=== PATIENT | male | born 1930 | race Caucasian/White ===

== ENCOUNTER → 2017-01-14 | Outpatient (CLI) | payer OTHER | END | disposition home or self-care (01) | LOC: GMAH 15:03 | PROVIDERS: ATTEND Family Medicine | DX: E03.9 Hypothyroidism, unspecified (principal) | CPT/HCPCS: 84443; 84550; G0103 ==

== ENCOUNTER → 2018-01-21 | Outpatient (CLI) | payer OTHER | LOC: GMAH 14:26 | PROVIDERS: ATTEND Family Medicine | DX: E03.9 Hypothyroidism, unspecified (principal); E78.2 Mixed hyperlipidemia; Z12.5 Encounter for screening for malignant neoplasm of prostate | CPT/HCPCS: 84443; 84550; G0103 ==

== ENCOUNTER 2018-09-15 17:14 | Inpatient (IN) | payer OTHER ==
--- NOTE | 2018-09-15 17:16 | HP ---
SUPERVISING PHYSICIAN: Adryan Tolbert MD CHIEF COMPLAINT: Dehydration. HISTORY OF PRESENT ILLNESS: This is an 88-year-old male patient who was seen in Dr. Teague's office today. His last clinic appointment was in the fall sometime. He has diabetes, type 2, that he has in the past kept under fairly decent control. According to Dr. Teague, one of his out of town children was trying to reach him in the last day or two and they were unable to reach him. The termite inspector was called to go check on him. The patient was okay, but he had not eaten in several days, he was very dehydrated and his son came from [place] to see him and brought him to Dr. Teague's office. Today, Dr. Teague did some routine lab work and found that he had a BUN of 81 with creatinine 3.3. His baseline creatinine is about 1.3. He has lost over 20 pounds since his last clinic visit. He also had a 16,000 white count, but no obvious sign of infectious process. He also had a chest x-ray done at the clinic and Dr. Teague said he did not see any pneumonia or infiltrate. He asked that the patient be directly admitted to the hospital for acute on chronic renal failure. PAST MEDICAL HISTORY: 1. Type 2 diabetes mellitus. 2. Hyperlipidemia. 3. Hypertension. 4. Hypothyroidism. PAST SURGICAL HISTORY: None. OUTPATIENT MEDICATIONS: Per the EMR and awaiting verification. ALLERGIES: PENICILLIN. SOCIAL HISTORY: He is retired. He has been twice and twice. He has four children. He quit smoking over 40 years ago. He denies any ETOH or illicit drug use. REVIEW OF SYSTEMS: Somewhat difficult to obtain due to the patient's mild confusion and questionable dementia. He did say that he had lost over 100 pounds in the last year and that he had not eaten much over the last two to three days, but other than that, it was very difficult to get a review of systems. PHYSICAL EXAMINATION: VITAL SIGNS: Pulse 61. O2 saturation 99% on room air. GENERAL: This is an 88-year-old male patient who is lying in his hospital bed. He is very thin and cachectic looking. He is in no acute distress. HEENT: Normocephalic, atraumatic. Pupils are equal and reactive. Oropharynx is clear. Oral mucous membranes are very dry. NECK: Supple without mass. RESPIRATORY: Essentially clear to auscultation bilaterally, somewhat diminished at the bases. CHEST: There is equal rise and fall of the chest with inspiration and expiration. CARDIOVASCULAR: Regular rate and rhythm. GASTROINTESTINAL: Abdomen is soft, nondistended, nontender. Bowel sounds are positive. EXTREMITIES: No cyanosis, clubbing or edema. NEUROLOGIC: Awake, alert and oriented to person and place. Again, he has a very difficult time answering questions appropriately, although according to Dr. Teague he is at his baseline. LABORATORY: Labs done at the hospital show WBCs 12.3, hemoglobin 11.7, hematocrit 35.9. He has a left shift on his differential. PT 19, INR 1.91, PTT 47.4. Sodium 134, potassium 5.6, chloride 102, carbon dioxide 19, BUN 80, creatinine 3.11, glucose 98. Calcium 9.1, magnesium 1.8. Liver function tests within normal limits. All other labs and films have been reviewed via the EMR. IMPRESSION: 1. Acute on chronic renal failure. His baseline creatinine is 1.3. Today, it was 3.11. 2. Dehydration. 3. Hyperkalemia, most likely secondary to #1. His potassium is 5.6. 4. Diabetes mellitus, type 2. 5. Leukocytosis with no fever or obvious infectious process, may be an inflammatory response to #1 and #2. 6. Hyperlipidemia. 7. Hypertension. 8. Hypothyroidism on supplementation. PLAN: We will admit the patient to the hospital. I will give him fluids overnight. We will recheck his lab in the morning. I will also consult Computer Repair Technician for discharge planning as I do not believe the patient will be safe at home as he lives by himself and there is an obvious self-care deficit and he has no family support as all of his children live out of town. He will be on a proton pump inhibitor for ulcer prophylaxis and Lovenox for DVT prophylaxis. We will continue to monitor the patient closely and follow as needed. #[id number] [facility]
[2018-09-15] MEDS ORDERED: ONDANSETRON INJ 4 MG/2 ML VIAL IV PRN (19:03)
[2018-09-15] MEDS ORDERED: SODIUM CHLORIDE 0.9% (FLUSH) 10 ML SYG IV PRN (19:03)
[2018-09-15] MEDS ORDERED: GLUCAGON INJ 1 MG VIAL SUBCU PRN (19:15)
[2018-09-15] MEDS ORDERED: SODIUM CHLORIDE 0.9% 1000ML 1,000 ML IVS ONE (19:26)
[2018-09-15] MEDS: SODIUM CHLORIDE 0.9% (FLUSH) 10 ML SYG IV SCH (20:55)
[2018-09-15] MEDS: INSULIN LISPRO 100 UNITS/ML PEN SUBCU SCH (20:56)
[2018-09-15] MEDS: IV SET AND CAP CHANGE INJ INJ SCH (20:56)
[2018-09-16] MEDS: INSULIN LISPRO 100 UNITS/ML PEN SUBCU SCH ×4 (07:11→21:17)
--- NOTE | 2018-09-16 07:50 | RAD ---
EXAM DESCRIPTION: Chest,2 Views CLINICAL HISTORY: routine COMPARISON: Previous chest x-ray February 19, [address] chest September 27, 2015 TECHNIQUE: PA/lateral FINDINGS: Linear density over the right lower lung zone could be discoid atelectasis, linear scar or something overlying the patient. The latter is thought most likely. Ill-defined infiltrate in the peripheral right lower lobe with slight blunting of the right costophrenic angle suggests pneumonia with small pleural effusion. Vague nodular densities in the right upper lobe are seen projecting between the posterior aspects of the right fifth and sixth ribs, sixth and seventh and seventh and eighth ribs. Correlate with chest CT findings. Heart size is normal with large central pulmonary arteries suggesting pulmonary hypertension. Calcified aortic arch. No left pleural effusion or pneumothorax. Left lung is clear with no left-sided consolidating infiltrate. Lateral view shows intact sternum and T-spine. Compared to the previous chest x-ray, extensive consolidation of the right lung now appears markedly improved. Previous chest CT from September 27, 2015 showed reticulonodular infiltrate throughout the right lung but the left lung appeared spared. IMPRESSION: Right lower lobe infiltrate with small right pleural effusion. Nodular densities in the right upper lobe. Correlate with chest CT findings. Electronically signed by: Bobby Joy MD 09/16/2018 7:48 AM CLIENT SUCCESS DIRECTOR
[2018-09-16] MEDS ORDERED: METFORMIN HCL 1000 MG PO SCH (09:00)
[2018-09-16] MEDS: SODIUM CHLORIDE 0.9% (FLUSH) 10 ML SYG IV SCH ×2 (09:03→20:39)
[2018-09-16] MEDS: LEVOTHYROXINE SODIUM 0.088 MG TAB PO SCH (09:03)
[2018-09-16] MEDS: LISINOPRIL 10 MG TAB PO SCH (09:03)
[2018-09-16] MEDS: SODIUM CHLORIDE 0.45% 1000ML 1,000 ML IVS PRN ×2 (13:09→21:17)
[2018-09-16] MEDS: metFORMIN HCL 500 MG TAB PO SCH (16:56)
[2018-09-16] MEDS: SIMVASTATIN 20 MG TAB PO SCH (20:39)
[2018-09-16] MEDS: VERAPAMIL HCL 200 MG PO SCH (20:39)
[2018-09-16] MEDS ORDERED: LEVALBUTEROL NEBS 1.25 MG/3 ML VIAL INH PRN (22:06)
[2018-09-16] MEDS ORDERED: SODIUM CHL 0.9% 50ML MIN-BAG+ 50 ML IVPB ONE (22:18)
[2018-09-16] MEDS ORDERED: cefTRIAXone SODIUM 1 GM VIAL ONE (22:18)
[2018-09-16] MEDS: cefTRIAXone SODIUM 1 GM in SODIUM CHL 0.9% 50ML MIN-BAG+ 50 ML IVPB SCH (22:21)
[2018-09-16] MEDS ORDERED: SODIUM CHLORIDE 0.9% 250ML 250 ML ONE (23:47)
[2018-09-16] MEDS ORDERED: AZITHROMYCIN IV 500 MG VIAL IVPB ONE (23:48)
[2018-09-16] MEDS: AZITHROMYCIN IV 500 MG in SODIUM CHLORIDE 0.9% 250ML 250 ML IVPB SCH (23:51)
[2018-09-17] MEDS: LEVOTHYROXINE SODIUM 0.088 MG TAB PO SCH (06:09)
[2018-09-17] MEDS: DEXTROSE 50% 25 GM/50 ML SYG IV PRN ×2 (07:05→07:27)
--- NOTE | 2018-09-17 08:04 | CT ---
EXAM: CT chest without contrast. CT abdomen and pelvis without contrast. INDICATION: Pneumonia. Acute on chronic renal failure. TECHNIQUE: Contiguous axial CT images of the chest. Contiguous axial CT images of the abdomen and pelvis. Intravenous contrast: Absent. Oral contrast: Absent. DLP 1036 mGy-cm. This exam was performed according to our departmental dose-optimization program, which includes automated exposure control, adjustment of the mA and/or kV according to patient size and/or use of iterative reconstruction technique. COMPARISON: 09/27/2015. FINDINGS: --Chest-- Thoracic aorta: Atherosclerotic calcifications Heart: There are atherosclerotic calcifications of the coronary arteries. There is a trace pericardial effusion. Mediastinum: No pathologic sized middle mediastinal lymphadenopathy. Tracheobronchial tree: Unremarkable. Lungs: Lobar consolidation: There has been development of nodular opacities within the right lower lobe. There are prominent interstitial opacities with tree-in-bud opacities within the right lung, similar to the prior. Pleural effusion: Negative. Pneumothorax: Negative. Other: Negative. Bones: Unremarkable. --Abdomen-- Solid abdominal viscera: Liver: Unremarkable. Gallbladder: Unremarkable. Pancreas: Unremarkable. Spleen: Unremarkable. Adrenal glands: Unremarkable. Right kidney: No hydronephrosis. Left kidney: There is moderate hydronephrosis and hydroureter. Urinary bladder: There is a 2.8 x 1.4 cm soft tissue density adjacent to the left UVJ (axial image 76). Abdominal aorta: Atherosclerotic calcifications without evidence of aneurysm Peritoneal: Free fluid: None. Free air: None. Other: No pathologic sized lymph nodes in the upper abdomen. There is a 4.3 x 6.3 cm lipoma along the left lower quadrant Bowel: Stomach: Unremarkable. Small bowel: Unremarkable. Appendix: No evidence of appendicitis. Colon: Diverticulosis without evidence of diverticulitis Rectum: Unremarkable. Prostate: Unremarkable. Bones: There is multilevel spondylosis IMPRESSION: 1. Right-sided pneumonia 2. Mass near the left UVJ causing moderate left-sided hydroureter and hydronephrosis. Further evaluation with cystoscopy is recommended. Electronically signed by: Federico Tinoco MD 09/17/2018 8:02 AM TELECOMMUNICATIONS EQUIPMENT INSTALLER Workstation: [id number]
[2018-09-17] MEDS: metFORMIN HCL 500 MG TAB PO SCH ×2 (08:06→17:50)
[2018-09-17] MEDS: INSULIN LISPRO 100 UNITS/ML PEN SUBCU SCH ×4 (08:06→20:54)
--- NOTE | 2018-09-17 08:34 | PN ---
SUPERVISING PHYSICIAN: Adryan Tolbert MD DATE: 09/16/2018 SUBJECTIVE: The patient is lying in bed. She is still quite confused. Earlier today he had taken his medication, even though he was told not to take his medications and that the nurses would give it to him. We discussed that he may have to have some physical therapy after discharge. It was difficult for him to understand the concept but he did deny that he had no chest pain, nausea or vomiting, he did not have any shortness of breath. OBJECTIVE: VITAL SIGNS: Temperature 97.9, heart rate 67, blood pressure 146/65, respiratory rate 20, 02 saturation 93% on room air. CHEST: Essentially clear to auscultation bilaterally. CARDIAC: Regular rate and rhythm. At times he is slightly bradycardic. ABDOMEN: Soft, nondistended, non-tender. Bowel sounds are positive. EXTREMITIES: No cyanosis, clubbing, or edema. NEURO: He is awake and alert. He is oriented to person only. He gets quite confused most of the time. LABORATORY: WBCs have improved to 10,500 with a hemoglobin of 11.4 and hematocrit of 34.9. He does have a left shift on differential. His chemistries are basically within normal limits with the exception f potassium of 5.3. His glucose was 39 early this morning but there were no signs and symptoms of hypoglycemia and he ate a good breakfast. His creatinine has improved to 2.8, BUN 79. Chest x-ray shows right lower lobe infiltrate with a small right pleural effusion. Nodular densities in the upper lobe, correlate with chest CT findings. All other labs and films have been reviewed via the EMR. . ASSESSMENT: 1. Acute on chronic renal failure. His baseline creatinine is 1.3. On admission, it was 3.11. 2. Dehydration. 3. Concerns for right lower lobe pneumonia, although patient has no reported symptoms of upper respiratory distress. He is a poor historian. 4. Hyperkalemia, most likely secondary to #1. 5. Diabetes mellitus, type 2. 6. Leukocytosis that has slightly improved. . 7. Hyperlipidemia. 8. Hypertension. 9. Hypothyroidism on supplementation. PLAN: We will continue present supportive care. He will continue on primary IV fluids until his kidney function improves. I have ordered routine in the morning. Brake Press Operator was consulted and will need to explore discharge planning, possibly prison placement with physical therapy. I will consult physical therapy for tomorrow as well as to do a CT scan as recommended on his x-ray. He will be n.p.o. at midnight as I will go ahead and do an abdominal CT to check to see if there are any kidney issues going on to have caused his renal issues. We will continue to monitor the patient closely and follow as needed. #[id number] [facility]
[2018-09-17] MEDS: LEVALBUTEROL NEBS 1.25 MG/3 ML VIAL INH SCH ×4 (08:35→19:28)
[2018-09-17] MEDS: SODIUM CHLORIDE 0.9% (FLUSH) 10 ML SYG IV SCH ×2 (08:59→20:50)
[2018-09-17] MEDS: SODIUM CHLORIDE 0.45% 1000ML 1,000 ML IVS PRN ×2 (09:00→20:45)
[2018-09-17] MEDS: LISINOPRIL 10 MG TAB PO SCH (10:17)
[2018-09-17] MEDS ORDERED: WARFARIN SODIUM 3 MG TAB PO ONE (12:26)
[2018-09-17] MEDS ORDERED: SODIUM CHLORIDE 0.9% 250ML 250 ML ONE (20:18)
[2018-09-17] MEDS ORDERED: SODIUM CHL 0.9% 50ML MIN-BAG+ 50 ML IVPB ONE (20:18)
[2018-09-17] MEDS ORDERED: AZITHROMYCIN IV 500 MG VIAL IVPB ONE (20:19)
[2018-09-17] MEDS ORDERED: cefTRIAXone SODIUM 1 GM VIAL ONE (20:19)
[2018-09-17] MEDS: VERAPAMIL HCL 200 MG PO SCH (20:47)
[2018-09-17] MEDS: SIMVASTATIN 20 MG TAB PO SCH (20:49)
[2018-09-17] MEDS: cefTRIAXone SODIUM 1 GM in SODIUM CHL 0.9% 50ML MIN-BAG+ 50 ML IVPB SCH (22:10)
[2018-09-17] MEDS: AZITHROMYCIN IV 500 MG in SODIUM CHLORIDE 0.9% 250ML 250 ML IVPB SCH (23:35)
[2018-09-18] MEDS ORDERED: MAGNESIUM SULFATE PREMIX 2GM 2 GM in PREMIX BAG 1 BAG IVPB ONE ×2 (04:07→09:38)
[2018-09-18] MEDS ORDERED: MAGNESIUM SULFATE PREMIX 2GM 50 ML IVPB ONE ×2 (04:41→10:34)
[2018-09-18] MEDS: LEVOTHYROXINE SODIUM 0.088 MG TAB PO SCH (06:03)
[2018-09-18] MEDS: LEVALBUTEROL NEBS 1.25 MG/3 ML VIAL INH SCH ×4 (07:56→20:40)
[2018-09-18] MEDS: metFORMIN HCL 500 MG TAB PO SCH (08:14)
[2018-09-18] MEDS: INSULIN LISPRO 100 UNITS/ML PEN SUBCU SCH ×4 (08:19→21:08)
[2018-09-18] MEDS: LISINOPRIL 10 MG TAB PO SCH (09:21)
[2018-09-18] MEDS: SODIUM CHLORIDE 0.9% (FLUSH) 10 ML SYG IV SCH ×2 (09:23→20:58)
--- NOTE | 2018-09-18 09:46 | PN ---
SUPERVISING PHYSICIAN: Adryan Tolbert MD DATE: 09/17/2018 SUBJECTIVE: The patient is lying in bed. He continues to be confused at times. He answers most questions. I explained that he had some irregularities on his CT scan and he would need to see Dr. Nunn, the urologist, and he was agreeable to that. I also discussed that he needed some rehabilitation at one of the local nursing homes. He was not quite as agreeable to that. I did discuss with his son at length about his discharge planning and he agreed that he was not safe to go home. Otherwise, the patient has no complaints of chest pain, nausea or vomiting, diarrhea or shortness of breath. OBJECTIVE: VITAL SIGNS: Temperature 98 , heart rate 60, blood pressure 118/62, respiratory rate 19, 02 saturation 94% on 2 liters nasal cannula. . CHEST: Diminished at the bases, otherwise a few scattered rhonchi throughout, somewhat more diminished on the right side. . CARDIAC: Regular rate and rhythm. ABDOMEN: Soft, nondistended, non-tender. Bowel sounds are positive. NEURO: He is awake and alert. He is oriented x3 but he does get somewhat confused but is easy to reorient. LABORATORY: WBCs 8.2, hemoglobin of 10.2 and hematocrit of 30.9. His INR is 1.78. Sodium 133, potassium 4.7, chloride 106, carbon dioxide 22, magnesium 1.5. Chest, abdominal/pelvic CT shows: 1. Right-sided pneumonia. 2. Mass near the left UVJ causing moderate left-sided hydroureter and hydronephrosis. Further evaluation with cystoscopy is recommended. All other labs and films have been reviewed via the EMR. . ASSESSMENT: 1. Acute on chronic renal failure. His baseline creatinine is 1.3. On admission, it was 3.11. Today it is 2.14. 2. Mass on his left ureter per CT scan. 3. Right lower lobe pneumonia. 4. Hyperkalemia, most likely secondary to #1. 5. Hypomagnesemia most likely secondary to #1. 6. Diabetes mellitus, type 2. 7. Leukocytosis that has normalized. . 8. Hyperlipidemia. 9. Hypertension. 10. Hypothyroidism on supplementation. PLAN: We will continue present supportive care. We are giving him magnesium supplementation, I have also asked for consultation by Dr. Nunn, urologist, on Thursday. I discussed his discharge plan at length with his son. His son's name is Arjun Salazar and he would like to be informed of anything that goes on. He lives in [place]. His telephone number is [phone]. He is to be back on Thursday or Thursday. He agreed that the patient should get some sort of rehabilitation since they offer it at one of the nursing homes, he was going to go by [facility] and discuss arrangements with them. I have ordered repeat labs in the morning. Will hold off on a chest x-ray at this time and will continue to monitor the patient closely and follow as needed. Dr. Tolbert is the collaborating physician available for consultation. #[id number] [facility]
[2018-09-18] MEDS: SODIUM CHLORIDE 0.45% 1000ML 1,000 ML IVS PRN (15:27)
[2018-09-18] MEDS ORDERED: SODIUM CHLORIDE 0.9% 250ML 250 ML ONE (20:32)
[2018-09-18] MEDS ORDERED: cefTRIAXone SODIUM 1 GM VIAL ONE ×2 (20:33→20:34)
[2018-09-18] MEDS ORDERED: AZITHROMYCIN IV 500 MG VIAL IVPB ONE (20:33)
[2018-09-18] MEDS ORDERED: SODIUM CHL 0.9% 50ML MIN-BAG+ 50 ML IVPB ONE (20:34)
[2018-09-18] MEDS: VERAPAMIL HCL 200 MG PO SCH (20:56)
[2018-09-18] MEDS: SIMVASTATIN 20 MG TAB PO SCH (20:57)
[2018-09-18] MEDS: IV SET AND CAP CHANGE INJ INJ SCH (20:58)
--- NOTE | 2018-09-18 21:19 | PN ---
DATE: 09/18/18 SUPERVISING PHYSICIAN: Manuelito Allred M.D. SUBJECTIVE: The patient is resting in bed. He is very talkative today, explaining his entire admission history and events prior to current hospitalization. I again discussed with him the findings on the CT and that he needs to be seen by urology and again the need for rehabilitation, however he is not in complete agreement at this point. He has had no other complaints, including chest pains, nausea, vomiting or diarrhea or shortness of breath. OBJECTIVE: VITAL SIGNS: Temperature 97.6, pulse 63, blood pressure 108/61, respirations 16, satting 97% on room air. I's and O's show a positive balance of 670 with 2170 in, 1500 out. Weight is 66.7 kg. GENERAL: The patient is alert. Appears to be in no distress. He is obviously cathartic and weak. CHEST: Lung sounds today are fairly clear, just diminished towards the bases with very faint rhonchi heard on the right side compared to the left. HEART: Regular rate and rhythm. ABDOMEN: Flat, soft with positive bowel sounds. NEUROLOGIC: He is alert and oriented times three. EXTREMITIES: Without any clubbing, cyanosis or edema. LABORATORY: White count 7,300, hemoglobin 10, hematocrit 30.0, platelet count 138,000. Differential does show a resolving left shift. RBC indices indicate a macrocytic hyperchromic presentation. Chemistry shows a mild hyponatremia with sodium 134, potassium is normal at 4.5, BUN is down to 49, creatinine is down to 1.91. Blood sugars have been between 101 and 148. Liver function shows to be within normal limits. Magnesium 1.3. Albumin 2.8. MICROBIOLOGY: No specimens pending. RADIOLOGY: No additional radiographic studies today. ASSESSMENT: 1. Acute on chronic renal failure with a known baseline of 1.3 with initial admission creatinine at 3.1 showing some improvement down to 1.9 likely due to both prerenal and postrenal azotemia contributed from dehydration and left sided pelvic mass causing hydronephrosis with urology consultation pending and some exacerbation probably from Metformin and Lisinopril. 2. Soft tissue mass in the left ureter as noted on CT scan contributing to a postrenal azotemia with urology consultation pending with Dr. Nunn on Thursday. 3. Right lower lobe pneumonia, community acquired, improving with treatment. 4. Hyperkalemia, resolved back to baseline. 5. Hypomagnesemia, improving with replacement likely due to poor nutritional status. 6. Diabetes mellitus, type 2 showing to be controlled. 7. Hypothyroidism on supplementation. 8. Hypertension. 9. History of unexplained weight loss with concerns of cancer involving the pelvic area with CT findings for soft tissue mass pending further consultation. 10. 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 11. Extreme deconditioning due to recent weight loss and chronic illness requiring more aggressive rehabilitation in order to return the patient back to a safer baseline physical status prior to discharge. PLAN: Will continue with treatment of pneumonia with antibiotics including azithromycin and Rocephin. Will continue aggressive pulmonary hygiene. Will go ahead and resume his fluids but decrease them to 80 with half normal saline and monitor his I's and O's closely. Still awaiting consultation with Dr. Nunn on Thursday. He will need further discharge planning in regards to his ongoing weakness and history of falls, and obviously not being a safe candidate for returning home. Until he can transition to outpatient management will continue to monitor and treat as needed. [facility][id number] [facility]
[2018-09-18] MEDS: cefTRIAXone SODIUM 1 GM in SODIUM CHL 0.9% 50ML MIN-BAG+ 50 ML IVPB SCH (22:51)
[2018-09-18] MEDS: AZITHROMYCIN IV 500 MG in SODIUM CHLORIDE 0.9% 250ML 250 ML IVPB SCH (23:37)
[2018-09-19] MEDS: SODIUM CHLORIDE 0.45% 1000ML 1,000 ML IVS PRN ×2 (05:07→18:28)
[2018-09-19] MEDS: LEVOTHYROXINE SODIUM 0.088 MG TAB PO SCH (06:04)
[2018-09-19] MEDS: INSULIN LISPRO 100 UNITS/ML PEN SUBCU SCH ×4 (07:34→22:42)
--- NOTE | 2018-09-19 08:19 | RAD ---
EXAM DESCRIPTION: Chest,2 Views CLINICAL HISTORY: 88 years Male Rt sided pneumonia COMPARISON: Two-view chest 09/16/2018 TECHNIQUE: PA and lateral views of the chest are obtained. FINDINGS: Heart: The heart is normal in size and configuration. Vasculature: There is [id number] tortuosity and atherosclerosis of the aorta. The pulmonary vascularity is normal. Mediastinum: Unremarkable otherwise. No evidence of mass or adenopathy. Lungs: Hyperinflation and hyperlucency of the lungs is consistent with COPD, more specifically centrilobular emphysema or reactive airway disease. An ill-defined opacity persists in the posterior basal segment of the right lower lobe which measures 3.2 cm CC by 2.2 cm T by approximately 3.6 cm AP with previously demonstrated surrounding infiltrate improving. The remainder of the lungs are essentially clear. Pleural spaces: There is blunting of the right costophrenic angle consistent with scarring or a small pleural effusion. There is no left pleural fluid or pneumothoraces. are no pneumothoraces. Osseous structures: There is no evidence of acute fracture, osseous destruction or osteoblastic lesions. There are diffuse enthesopathic changes including a rolling pattern of ossification in the thoracic spine consistent with diffuse idiopathic skeletal hyperostosis (DISH). Tubes and catheters: None. Upper abdomen: No acute findings. IMPRESSION: Persistent ill-defined opacity in the right lower lobe with less surrounding infiltrate. Although, this appearance could indicate improving pneumonia, an underlying mass is not excludable. Short-term follow-up films to complete resolution are recommended. CT chest may be warranted if this fails to clear in a timely manner. Electronically signed by: Malena Bruno MD 09/19/2018 8:16 AM [facility]
[2018-09-19] MEDS: LEVALBUTEROL NEBS 1.25 MG/3 ML VIAL INH SCH ×4 (08:37→20:47)
[2018-09-19] MEDS: SODIUM CHLORIDE 0.9% (FLUSH) 10 ML SYG IV SCH ×2 (11:50→22:07)
[2018-09-19] MEDS ORDERED: SODIUM CHLORIDE 0.9% 250ML 250 ML ONE (19:58)
[2018-09-19] MEDS ORDERED: SODIUM CHL 0.9% 50ML MIN-BAG+ 50 ML IVPB ONE (19:58)
[2018-09-19] MEDS ORDERED: AZITHROMYCIN IV 500 MG VIAL IVPB ONE (19:59)
[2018-09-19] MEDS ORDERED: cefTRIAXone SODIUM 1 GM VIAL ONE (19:59)
--- NOTE | 2018-09-19 21:20 | PN ---
DATE: 09/19/18 SUPERVISING PHYSICIAN: Manuelito Allred M.D. SUBJECTIVE: The patient actually looks pretty good today. He was up and around in his room showing to be able to function with very little assistance from the nurses. He also notes that he is feeling much better. OBJECTIVE: VITAL SIGNS: Temperature 97.6, pulse 71, blood pressure 159/66, respiratory rate 18, satting 99% on room air at rest. I's and O's show a positive balance with a weight of 68.3. CHEST: Lung sounds are clearer today. There is no obvious rhonchi or rales. They do remain diminished towards the bases. HEART: Regular rate and rhythm. ABDOMEN: Soft, non-tender. Positive bowel sounds. NEUROLOGIC: He remains alert and oriented times three. EXTREMITIES: Without any clubbing, cyanosis or edema. LABORATORY: Chemistries show sodium 134, BUN is now 35, creatinine is down to 1.82. Blood sugar is between 99 and 131. Calcium 8.5. RADIOLOGY: Chest x-ray per radiology interpretation note of persistent ill- defined opacity in the right lower lobe with less surrounding infiltrate. Although appearance could indicate improving pneumonia, lung mass is not excludable. Short term followup is recommended as well as CT. ASSESSMENT: 1. Acute on chronic renal failure with the patient's baseline at 1.3 on creatinine with initial creatinine at 3.1,now improving down to 1.8 felt to be due to prerenal and postrenal azotemia contributed both from dehydration and left sided pelvic mass causing resulting hydronephrosis with urology consultation pending and with some exacerbation probably from Metformin and Lisinopril. 2. Soft tissue mass in the pelvic area abutting the left ureter as noted on CT probably contributing to postrenal azotemia with urology consultation pending on Thursday with Dr. Nunn. 3. Right lower lobe pneumonia, community acquired, improving with treatment. 4. Hyperkalemia, resolved, now back to baseline. 5. Hypomagnesemia, improving with replacement probably due to poor nutritional status. 6. Diabetes mellitus, type 2 showing to be controlled. 7. Hypothyroidism on supplementation. 8. Hypertension, controlled. 9. History of unexplained weight loss with concerns for cancer involving the pelvic area with CT findings of soft tissue mass pending further consultation. 10. 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 11. Deconditioning due to recent weight loss and chronic illness requiring more more aggressive rehabilitation in order to return the patient back to a safer baseline physical status prior to discharge. PLAN: Will continue with his treatment with antibiotics of azithromycin and Rocephin, and pulmonary hygiene. I have encouraged ambulation as much as possible in the room. Will continue with some fluids as he is still not having quite adequate oral intake. Will await Dr. Nunn's consultation tomorrow and hopefully be able to discharge either later tomorrow or Thursday after we make arrangements to have the patient go to rehab or [facility] versus going home as the patient has voiced multiple times that he is not going to go into any kind of outpatient management system. Until then will continue to monitor and treat as needed. #[id number] [facility]D
[2018-09-19] MEDS: VERAPAMIL HCL 200 MG PO SCH (22:05)
[2018-09-19] MEDS: cefTRIAXone SODIUM 1 GM in SODIUM CHL 0.9% 50ML MIN-BAG+ 50 ML IVPB SCH (22:06)
[2018-09-19] MEDS: SIMVASTATIN 20 MG TAB PO SCH (22:06)
[2018-09-20] MEDS: AZITHROMYCIN IV 500 MG in SODIUM CHLORIDE 0.9% 250ML 250 ML IVPB SCH (00:18)
[2018-09-20] MEDS: LEVOTHYROXINE SODIUM 0.088 MG TAB PO SCH (06:34)
[2018-09-20] MEDS: INSULIN LISPRO 100 UNITS/ML PEN SUBCU SCH ×2 (07:24→11:43)
[2018-09-20] MEDS: LEVALBUTEROL NEBS 1.25 MG/3 ML VIAL INH SCH ×3 (07:58→14:57)
[2018-09-20] MEDS: SODIUM CHLORIDE 0.9% (FLUSH) 10 ML SYG IV SCH (08:36)
[2018-09-20 15:11] VITALS: BP 195/70; TEMP 98; O2SAT 99
--- NOTE | 2018-09-28 17:26 | DS ---
SUPERVISING PHYSICIAN: Braeden Bennett MD ADMISSION DIAGNOSIS 1. Acute on chronic renal failure. His baseline creatinine is 1.3. Today, it was 3.11. 2. Dehydration. 3. Hyperkalemia, most likely secondary to #1. His potassium is 5.6. 4. Diabetes mellitus, type 2. 5. Leukocytosis with no fever or obvious infectious process, may be an inflammatory response to #1 and #2. 6. Hyperlipidemia. 7. Hypertension. 8. Hypothyroidism on supplementation. DISCHARGE DIAGNOSIS: 1. Acute on chronic renal failure with a baseline creatinine is 1.3. Creatinine on admission showing 3.1, returning to baseline felt to be due to prerenal and postrenal azotemia contributed both from dehydration and left-sided pelvic mass causing resulting hydronephrosis, urology consultation pending at discharge with some exacerbation more likely from Metformin and lisinopril. 2. Soft tissue mass in the pelvic area abutting the left ureter noted on CT probably contributing to postrenal azotemia with urology consultation pending. 3. Right lower lobe pneumonia, community acquired, improving with treatment. 4. Hyperkalemia, resolved, now back to baseline. 5. Hypomagnesemia, improving and back to baseline felt to be secondary to poor nutrition/ 6. Diabetes mellitus, type 2 showing to be controlled. 7. Hypothyroidism on supplementation. 8. Hypertension, controlled. 9. History of unexplained weight loss with concerns for cancer especially involving the pelvic area with CT findings of soft tissue mass pending further consultation. with urology. 10. Anemia with macrocytic hyperchromic presentation secondary to illness needing further workup as an outpatient. 11. Significant deconditioning related to his recent weight loss and chronic illness requiring more aggressive rehabilitation in efforts to return the patient back to a safer baseline physical status prior to discharge. REASON FOR ADMISSION: This is an 88-year-old male patient who was seen in Dr. Teague's office today. His last clinic appointment was in the fall sometime. He has diabetes, type 2, that he has in the past kept under fairly decent control. According to Dr. Teague, one of his out of town children was trying to reach him in the last day or two and they were unable to reach him. The lead python developer was called to go check on him. The patient was okay, but he had not eaten in several days, he was very dehydrated and his son came from [place] to see him and brought him to Dr. Teague's office. Today, Dr. Teague did some routine lab work and found that he had a BUN of 81 with creatinine 3.3. His baseline creatinine is about 1.3. He has lost over 20 pounds since his last clinic visit. He also had a 16,000 white count, but no obvious sign of infectious process. He also had a chest x-ray done at the clinic and Dr. Teague said he did not see any pneumonia or infiltrate. He asked that the patient be directly admitted to the hospital for acute on chronic renal failure. LABORATORY STUDIES: CBC on admission showed a white count of 12,300, at discharge was 7,300. Hemoglobin and hematocrit stabilized from discharge of 10 and 30s respectively with platelet count of 138,000. Differential did show a left shift which was improving prior to discharge. Coagulation studies showed initially a PT of 19.0 with INR at 1.9 and PTT of 47.4 with INR being therapeutic at discharge at 2.11 needing further workup as an outpatient. Chemistries on admission showed a sodium of 134, potassium 5.6, BUN of 80, creatinine 3.1. After fluids and prior to discharge, sodium normalized to 136, creatinine had normalized to near baseline levels at 1.68 and BUN was down fro 80 to 28 at discharge. Blood sugars ranged from 57 to 148. Urinalysis on admission showed a small amount of blood with microscopic showing 5 to 10 RBC, 1 to 3 epithelials, 1 to 3 WBCs, 0 bacteria, 1 to 3 hyalin casts. MICROBIOLOGY: No microbiology specimens were submitted. RADIOLOGY: Initially, a chest x-ray on admission and per radiology interpretation, right lower lobe infiltrate was noted with a small right pleural effusion. There was also note of a nodular density in the right upper lobe, correlate with chest findings on a CT. He then had a CT of the chest and per radiology interpretation showed right-sided pneumonia and a mass near the left UVJ causing moderate left-sided hydroureter and hydronephrosis, recommend further evaluation with cystoscopy. Abdominal/pelvic CT which was combined with the CT of the chest as noted above, see those reports for full details. He had an additional chest x-ray on the 3rd, the day before discharge and per radiology interpretation showed a persistent ill-defined opacity in the right upper lobe with less surrounding infiltrate, although this appearance could indicate improving pneumonia and underlying mass is not excludable. Short-term followup films to complete resolution is recommended. CT chest is also warranted which was done. HOSPITAL COURSE: Mr. Salazar was admitted on 09/15/18 for acute on chronic renal failure with some electrolyte imbalance, dehydration. Initially, he was started on fluids. He progressed and then after further studies and failure of his renal function improved significantly after fluids, he was continued on fluids and a CT scan was done of the abdomen and he progressed though his clinical course and was treated for the right upper lobe pneumonia which was noted on chest film and x-ray with azithromycin and Rocephin. His renal function improved dramatically with fluids. He was showing good improvement in regards to his upper respiratory infection and pneumonia. There was initial consultation with Dr. Nunn for further evaluation of the mass in his pelvis, however, Dr. Nunn was unable to see the patient in consultation and the patient was found to be stable enough to continue as an outpatient and followup with Dr. Nunn or Dr. Duke and Dr. Teague, his primary care physician in a short period of time after discharge. PLAN: Mr. Salazar was discharged on 09/20/18 with instructions to resume his home medications as instructed and noted changes that we decrease his metformin to 500 mg twice a day as well as the lisinopril to decrease to 10 mg daily. He was encouraged to push fluids for the dehydration and instructed to return to the hospital for any concerning symptoms or other concerns. He has a followup appointment on 09/29/18 at 10:[address] Teague and followup to be arranged with Urology. Discharge prescriptions: 1. Cefdinir 300 mg twice a day for 7 days. 2. Lisinopril 10 mg daily, #30. 3. Metformin 500 mg twice a day, #60, no refills. All other medications prior to hospitalization were continued as on admission. He was encouraged to increase his activity level as tolerated and return to a diabetic diet as tolerated. He was discharged with condition stable and improving. Discharge disposition: Discharge to home. #[id number] [facility]
== END 2018-09-20 16:16 | disposition home or self-care (01) | DRG 682 ==
LOC: MS 17:14
PROVIDERS: ADMIT Nurse Practitioner Acute Care; ATTEND Nurse Practitioner Family
DX: N17.9 Acute kidney failure, unspecified (principal); J18.9 Pneumonia, unspecified organism; E46 Unspecified protein-calorie malnutrition; E86.0 Dehydration; E87.5 Hyperkalemia; I12.9 Hypertensive chronic kidney disease with stage 1 through stage 4 chronic kidney disease, or unspecified chronic kidney disease; N18.9 Chronic kidney disease, unspecified; E11.22 Type 2 diabetes mellitus with diabetic chronic kidney disease; E78.5 Hyperlipidemia, unspecified; E03.9 Hypothyroidism, unspecified; E83.42 Hypomagnesemia; D63.8 Anemia in other chronic diseases classified elsewhere; N13.30 Unspecified hydronephrosis; R19.09 Other intra-abdominal and pelvic swelling, mass and lump; Z88.0 Allergy status to penicillin; Z79.01 Long term (current) use of anticoagulants

== ENCOUNTER → 2019-02-16 | Outpatient (CLI) | payer OTHER | LOC: GRHH 09:20 | PROVIDERS: ATTEND Family Medicine | DX: E11.9 Type 2 diabetes mellitus without complications (principal); I10 Essential (primary) hypertension ==

== ENCOUNTER → 2019-03-16 | Outpatient (CLI) | payer OTHER ==
--- NOTE | 2019-03-16 18:53 | US ---
EXAM DESCRIPTION: Venous,Lower Extremity LT: ULTRASOUND. CLINICAL HISTORY: Leg pain COMPARISON: CT scan of abdomen and pelvis on this visit. TECHNIQUE: Brooks-scale and doppler sonographic evaluation of the deep venous system of the left lower extremity. FINDINGS: Doppler evaluation shows normal color flow and normal phasicity and augmentation of the left common femoral vein, femoral vein, popliteal vein, greater saphenous vein, peroneal, and posterior tibial vein. The left lower extremity deep veins were completely compressible; normal occlusion with transducer pressure. Brooks-scale survey showed no echogenic thrombus within these veins. IMPRESSION: 1. Duplex ultrasound evaluation of the left lower extremity deep venous system showing no evidence of thrombosis. Electronically signed by: Tor Estes MD 03/16/2019 6:51 PM CDT
--- NOTE | 2019-03-17 09:50 | CT ---
EXAM DESCRIPTION: Abdomen/Pelvis w/o Contrast: Computed Tomography. CLINICAL HISTORY: 89 years Male Hematuria, unspecified COMPARISON: CT scan abdomen and pelvis without contrast 09/17/2018. TECHNIQUE: Spiral-axial scans 2.5 x 2.5 mm intervals through the abdomen and pelvis without oral or IV contrast. Coronal and sagittal 2.0 mm reconstructions. Total Exam DLP: 378.15 mGy-cm. This exam was performed according to our departmental CT dose-optimization program which includes automated exposure control, adjustment of the mA and/or kV according to patient size and/or use of iterative reconstruction technique; to reduce radiation dose to as low as reasonably achievable (ALARA). FINDINGS: Lung bases and pleura: Multiple thickened branching infiltrates and nodules in the left lower lobe with tree-in-bud pattern. New since the prior study. Pleural effusion or pleural thickening on the right with posterior dependent basilar atelectasis. Decreased density since the prior study. Coronary artery calcifications and stents, mild cardiomegaly, and thoracic aorta atherosclerotic calcifications. Stable since the prior study. Liver, stomach, spleen, and adrenal glands: Stomach difficult to evaluate due to gas in the colon and stomach. Left adrenal enlargement and calcifications stable density -5. Calcifications along the lateral splenic border stable. Right adrenal gland and liver negative. Pancreas, Gallbladder, and Ducts: Dilated gallbladder partially obscured by bowel gas. Pancreas and duct mostly obscured with pancreas showing no gross mass. Unable to evaluate mesentery abutting the pancreas. Kidneys and Ureters: Moderate hydronephrosis of the left kidney and at least 2 cysts. Marked distention of the ureter or almost its entire length with increased density in the distal ureter at the ureterovesical junction but no typical radiodense stone. Ureter caliber increased and hydronephrosis increased since the prior study. Right kidney and ureter negative. Pelvic Organs: Urinary bladder wall thickening increased since the prior study, though bladder more distended on previous study. Asymmetric thickening around the left ureterovesical junction. Prostate gland is enlarged and impressing on the base of the urinary bladder. Mesentery: Decreased fatty volume since the prior study with increased density. Minimal ascites. No free air. Aorta: Moderate atherosclerotic disease including ostia of prominent branch vessels. Distal abdominal aorta 2.1 cm. Wedged between the spinal column and the anterior abdominal wall. Periaortic densities may represent lymphadenopathy.. Small Bowel: Diffuse gas with minimal fluid or distention. More fluid distally. No significant air-fluid levels. Partially obscured by artifact. Terminal Ileum/Cecum: Partially obscured by artifact and no obstruction. Colon: Diffuse gas with artifact. Spine and Bony Pelvis: Multiple levels of spondylosis lumbar. Infiltrative appearance of the marrow with multiple lytic lesions. Spine and sacrum and pelvis. Abdominal Wall/Back Soft Tissues: Increased density/edema. Concavity of abdominal pelvic wall.. IMPRESSION: 1. Urinary bladder is contracted but increasing thickening with asymmetric mass involving the mid and left lateral bladder base with increasing obstruction of the left ureterovesical junction. Increased dilation of the left ureter and increased hydronephrosis left kidney. Consider urologic consult for left ureteral stent. 2. Artifact from gas in the bowel and edema in the mesentery and decreased mesentery limiting the study. No bowel obstruction. 3. Progression of multiple heterogeneous lytic lesions in the marrow of the spine, pelvis, and sacrum consistent with metastatic disease. 4. Linear and branching type infiltrate with tree-in-bud pattern in the left lower lobe the prior study. This can be a secondary to lymphangitic spread of tumor, fungal, viral, or mycobacterial disease. Consider chest CT scan to evaluate for metastatic disease. 5. Possible periaortic metastatic adenopathy. Electronically signed by: Tor Estes MD 03/17/2019 9:49 AM CDT
== END ==
LOC: US 12:46
PROVIDERS: ATTEND Nurse Practitioner Family
DX: N32.89 Other specified disorders of bladder (principal); N13.30 Unspecified hydronephrosis; M89.8X8 Other specified disorders of bone, other site; R91.8 Other nonspecific abnormal finding of lung field; M79.605 Pain in left leg

== ENCOUNTER → 2019-03-29 | Outpatient (CLI) | payer OTHER | LOC: GRHH 10:14 | PROVIDERS: ATTEND Family Medicine | DX: E11.9 Type 2 diabetes mellitus without complications (principal); R68.89 Other general symptoms and signs; R78.89 Finding of other specified substances, not normally found in blood; R41.0 Disorientation, unspecified; R39.198 Other difficulties with micturition ==